=== PATIENT | male | born 1950 | race Caucasian/White ===

== ENCOUNTER → 2022-08-20 08:02 | Outpatient (REF) | payer MEDICARE, SELFPAY ==
--- NOTE | 2022-08-20 08:08 | CA_ITS ---
Transthoracic Echocardiogram Patient (Last, First, Middle): Mikie Grimes, Gender: Male Date of : 1950 Age: 72 Procedure Date: 08/20/2022 Procedure Type: Transthoracic Echocardiogram Location: [place] Height: 177.8 cm Weight: 89.81 kg BSA: 2.08 m2 Heart Rate: bpm BP: 126 / 74 mmHg Combiner Operator: GILBERTO Referring MD: Shaheed Álvarez MD [place] Veneer Taper: Dwight Coffey MD Symptoms: ISCHEMIC CMP 125.5 Study Quality: Fair ECG Rhythm: Sinus Conclusions: - 1. Moderate LV systolic dysfunction with LVEF of 35-40% with mild LVH with regional wall motion abnormality consistent with ischemic cardiomyopathy with impaired relaxation filling pattern 2. Normal cardiac valvular Doppler 3. Normal RV systolic pressure 4. No gross pericardial effusion Findings Procedure Information Contrast agent, definity, is being given per protocol without apparent complications. Left Ventricle Normal left ventricular cavity size. There is mildly increased left ventricular wall thickness. The left ventricular systolic function is moderately decreased. The visually estimated ejection fraction is between 35 40%. Spectral Doppler is indicative of an impaired relaxation filling pattern. E/E prime ratio is between 8 and 15 consistent with indeterminate filling pressures. Wall Motion Rest Echo Findings The apex and apical inferior segments are hypokinetic. The inferoseptal wall, the mid inferior, and apical septum segments are akinetic. The basal inferior segment is dyskinetic. All other scored wall segments showed normal motion. Right Ventricle Normal right ventricular cavity size and systolic function. Atria The left atrium is mildly dilated. Interatrial shunt cannot be excluded. The right atrium is normal in size. Aortic Valve There is mild calcification of the aortic valve. There is mild aortic valve stenosis. There is no aortic valve regurgitation. Mitral Valve Normal mitral valve structure and function. There is trace mitral valve regurgitation. There is no mitral valve stenosis. Pulmonic Valve The pulmonic valve was not well visualized. Tricuspid Valve Normal tricuspid valve structure. There is trace tricuspid valve regurgitation. The right ventricular systolic pressure is normal. The right ventricular systolic pressure is 18 mmHg. Normal right atrial pressure. Great Vessels The pulmonary artery was not well visualized. There is mild dilatation of the ascending aorta. Venous The inferior vena cava is normal in size and collapses greater than 50% with inspiration. Pericardium/Pleural There is no evidence of pericardial effusion. Prior Study Comparison Changes noted compared to prior study dated: 01/16/2022. LV systolic function has improved compared to prior reported results Measurements 2D Linear Measurements IVSd: 1.30 0.6-0.9/0.6-1.0 cm LVIDd: 5.33 3.9-5.3/4.2-5.9 cm LVIDd Index: 2.56 2.4-3.2/2.2-3.1 cm/m2 LVIDs: 4.87 2.0-3.6 cm LVPWd: 1.05 0.7-1.1 cm LA Diam: 4.30 2.7-3.8/3.0-4.0 cm LAIDs Index: 2.07 1.5-2.3 cm/m2 LV Mass: 313.63 67-162/88-224 g LV Mass Index: 150.78 43-95/49-115 g/m2 LVOT Diam: 2.10 3.0+(-)1.3 cm 2D Systolic Function EF 4C: 39.10 >55% EF 2C: 47.50 >55% Mitral Valve MV Pk E: 0.43 MV PK A: 0.81 MV Decel Time: 328.00 E/A: 0.50 E'Lateral: 6.74 E'Medial: 5.98 E/E' Med: 7.20 E/E' Lat: 6.40 PHT: 96.00 MVA PHT: 2.29 Decel [place]: 1.31 Aortic Valve AoV Pk Ishan: 1.26 AoV Mn Ishan: 0.89 AoV VTI: 0.31 AoV Pk Grad: 6.00 Aov Mn Grad: 3.00 CESAR Cont.VTI: 2.42 LVOT LVOT Pk Ishan: 0.98 LVOT Mn Ishan: 0.64 LVOT VTI: 0.22 LVOT Pk Grad: 4.00 LVOT Mn Grad: 2.00 LVOT Diam: 2.10 LVOT Area: 3.46 Diastolic Function MV Pk E: 0.43 MV Pk A: 0.81 E/A: 0.50 E'Medial: 5.98 E/E' Med: 7.20 E' Laterial: 6.74 E/E' Lat: 6.40 Right Ventricle TAPSE (mm): 17.00 TVS' Ishan: 8.00 Tricuspid Valve TR Pk Ishan: 1.95 TR Pk Grad: 15.00 RA Press: 3.00 RVSP: 18.00 Great Vessels Aorta Sinus of Valsalva: 4.35 2.0-3.[address] [place]: 3.12 1.7-3.4 cm Ao Asc: 3.80 2.1-3.4 cm Updated in Other Vendor System with Status of Final Dwight Coffey MD electronically signed on 08/20/2022 12:12:17 PM with status of Final
== END ==
LOC: HO.CARD 08:02
PROVIDERS: PCP Internal Medicine; Visit Provider Radiology Diagnostic Ultrasound
DX: I25.5 Ischemic cardiomyopathy (principal)
CPT/HCPCS: 93306; Q9957